=== PATIENT | female | born 1965 | race Caucasian/White ===

== ENCOUNTER 2019-06-22 02:50 | Emergency (ER) | payer OTHER ==
[~2019-06-22] VITALS: Ht 160 cm; Wt 81.6 kg
[2019-06-22 02:59] VITALS: BP 150/99
--- NOTE | 2019-06-22 03:01 | NUR ---
Dr. De Leon examining patient.
[2019-06-22 03:05] VITALS: BP 150/99
--- NOTE | 2019-06-22 03:05 | NUR ---
PATIENT BIB [employer]. PATIENT EXAMINED BY DR. GOMEZ. PATIENT MEDICALLY CLEARED AND RELEASED IN CUSTODY IN STABLE CONDITION. ORIGINAL PRE-BOOK FORM GIVEN TO [employer].
== END 2019-06-22 03:05 ==
LOC: MED 02:50
DX: Z04.1 Encounter for examination and observation following transport accident (principal); Z02.89 Encounter for other administrative examinations; V89.2XXA Person injured in unspecified motor-vehicle accident, traffic, initial encounter; Y93.89 Activity, other specified; Y92.89 Other specified places as the place of occurrence of the external cause; Y99.8 Other external cause status
CPT/HCPCS: 99283